=== PATIENT | male | born 1945 | race Hispanic/Latino ===

== ENCOUNTER → 2020-01-11 | Day surgery (SDC) | payer MEDICARE ==
[2020-01-08 12:33] LABS: BASOPHILS # (AUTO) 0.1 (0.0-0.1); BASOPHILS % 1.2 % (0.0-1.0); EOSINOPHILS # (AUTO) 0.2 (0.0-0.4); EOSINOPHILS % 3.1 % (0.0-6.0); HEMATOCRIT 42.5 % (38.2-49.6); HEMOGLOBIN 14.9 g/dL (14.0-18.0); LYMPHOCYTES # (AUTO) 2.4 (1.0-3.2); LYMPHOCYTES % 34.9 % (18.0-39.1); MEAN CORPUSCULAR HGB CONC 35.1 g/dL (31-35); MEAN CORPUSCULAR VOLUME 91.4 fL (81-99); MONOCYTES # (AUTO) 0.6 (0.2-0.8); MONOCYTES % 9.2 % (4.4-11.3); NEUTROPHILS # (AUTO) 3.5 (2.1-6.9); NEUTROPHILS % 50.6 % (38.7-80.0); PLATELET COUNT 210 x10e3/uL (140-360); RED BLOOD COUNT 4.65 x10e6/uL (4.3-5.7); RED CELL DISTRIBUTION WIDTH 13.1 % (11.7-14.4)
--- NOTE | 2020-01-08 12:43 | Diagnostic Imaging Report ---
EXAM: CHEST 2 VIEWS DATE: 01/08/2020 12:27 PM INDICATION: Preoperative evaluation COMPARISON: None FINDINGS: The trachea is midline. The lungs are symmetrically expanded without evidence for large focal consolidation, pneumothorax, or significant pleural effusion. The cardiomediastinal silhouette and pulmonary vasculature are within normal limits. No acute osseous abnormality is identified. The surrounding soft tissues are unremarkable. IMPRESSION: No acute cardiopulmonary process identified. Signed by: Dr. Brian Browning MD on 01/08/2020 12:39 PM
[2020-01-08 12:55] LABS: ANION GAP 10.4 mmol/L (8-16); CALCIUM 9.9 mg/dL (8.4-10.2); CREATININE, SERUM 1.48 mg/dL (0.72-1.25); POTASSIUM 5.4 mmol/L (3.5-5.1)
[~2020-01-11] MED LIST: AMLODIPINE BESY10 MG PO; B&O 60MG R/S 60 MG SUPP PR ONE; CEFTRIAXONE SOD 1 GM/NS 50 ML 50 ML IV ONE; CRESTOR10 MG PO; FENTANYL CITRATE/PF 100MCG/2 ML INJ ONE; FLOMAX0.4 MG PO; GEMFIBROZIL600 MG PO; IOPAMIDOL 610MG/1ML 300 MG/ML VIAL IV ONE; LIDOCAINE HCL 2% LOCAL INJ 5 ML SDV VIAL INJ ONE; METOPROLOL SUCC25 MG PO; NOVALOG INJ; ONDANSETRON HCL INJ 2MG/ML 2ML 2 MG/ML VIAL ONE; PANTOPRAZOLE SO40 MG PO; PROPOFOL IV EMULSION 10 MG/ML 20 ML VIAL ONE; RAMIPRIL10 MG PO; SEVOFLURANE INHAL SOLN 250 ML PEN BTL ONE; TRESIBA FL100 UNIT/1 SQ; TRIAMTERENE-HCTZ1 EA PO; VICTOZA 2-0.6 MG/0.1; [UNRECOGNIZED DRUG - OTHER] SQ
[2020-01-11 09:20] LABS: ANION GAP 12.9 mmol/L (8-16); BLOOD UREA NITROGEN 12 mg/dL (7-26); BUN/CREATININE RATIO 11 (6-25); CALCIUM 9.2 mg/dL (8.4-10.2); CARBON DIOXIDE 24 mmol/L (22-29); CHLORIDE 107 mmol/L (98-107); CREATININE, SERUM 1.06 mg/dL (0.72-1.25); EST GLOMERULAR FILTRATION RATE > 60 ML/MIN (60-); GLUCOSE 121 mg/dL (74-118); POTASSIUM 3.9 mmol/L (3.5-5.1); SODIUM 140 mmol/L (136-145)
[2020-01-11 11:40] VITALS: BP 126/71
--- OUTSIDE RECORDS SUMMARY | 2020-01-11 14:28 | XMS REPORT | Summary of Care ---
Author Author RHONDA SIDDIQUI M.D. Unknown Address Unknown Phone Unavailable Care Team Providers Care Survey Research Analyst Name Role Phone RHONDA SIDDIQUI M.D. Unavailable Unavailable ALENA SANCHEZ, ETHAN Unavailable Unavailable ARTUR SANCHEZ [place], RHONDA HINOJOSA Unavailable Unavailable ZHANE SANCHEZ [place], ZAIDA JESUS Unavailable Unavailable ZAIDA PHELAN M.D. Unavailable Unavailable KEVYN SANCHEZ [place], YANA Reese Unavailable Unavailable Unavailable Unavailable Functional Status Name Dates Details Functional status health issues are not documented Status: Name Dates Details Cognitive status health issues are not documented Status: Problems Name Dates Details Diabetes (250.00, E11.9) Status: Active High blood pressure (401.9, I10) Status: Active Lipoma of skin and subcutaneous tissue of neck (214.1, D17.0) Status: Active Arteriosclerosis of right carotid artery (433.10, I65.21) Status: Active Medications Name Dates Details Crestor TABS Active Synthroid TABS * Refills: 0 Active Fexofenadine HCl TABS * Refills: 0 Active Maxzide TABS * Refills: 0 Active Ramipril CAPS * Refills: 0 Active amLODIPine Besylate TABS * Refills: 0 Active Pantoprazole Sodium TBEC * Refills: 0 Active Tamsulosin HCl CAPS * Refills: 0 Active Gemfibrozil TABS * Refills: 0 Active Metoprolol Succinate ER TB24 * Refills: 0 Active Multivitamins TABS * Refills: 0 Active Aspirin TABS * Refills: 0 Active Allergies and Adverse Reactions Name Dates Details No Known Allergies (Allergy) Status: Active Past Medical History Name Dates Details History of diabetes mellitus (V12.29, Z86.39) Status: Resolved History of hypercholesterolemia (V12.29, Z86.39) Status: Resolved History of hypertension (V12.59, Z86.79) Status: Resolved History of Hypertriglyceridemia (272.1, E78.1) Status: Resolved Procedures Procedure Dates Details History of Hand Surgery Completed Immunization Name Dates Details Immunizations not documented Family History Name Dates Details Family history of asthma (V17.5, Z82.5) Comments: Other Status: Active Name Dates Details Family history of diabetes mellitus (V18.0, Z83.3) Status: Active Name Dates Details Family history of diabetes mellitus (V18.0, Z83.3) Status: Active Social History Name Dates Details - Status: Name Dates Details Former smoker Vital Signs Date Test Result Details No Known Vitals to report Results Date Description Value Details Results not documented Plan of Care Name Dates Details Planned Observations Planned Goals not documented Planned Encounters Appointment; SE MIKKI On: 21-Jan-2020 13:00 Appointment; RHONDA SIDDIQUI M.D. On: 28-Jan-2020 7:30 Appointment; RHONDA SIDDIQUI M.D. On: 12-Feb-2020 10:00 Interventions Provided Labs/Procedures/Imaging* Tobacco Use Screening; Done: 18 Dec 2019 Plan* Reviewed the following results today: * 1) Carotid US (dated 11/29/2019) * 2) Timothy Le Arterial Doppler (dated 11/29/2019) * I evaluated Mr. Isidro today for carotid artery stenosis. * Will schedule him for a repeat Carotid US to assure % of carotid stenosis. * Will proceed with scheduling him for a Right CEA. The procedure, risks and potential complications were reviewed with verbalized understanding. Neuromonitoring. * To continue ASA. Instructions Name Dates Details Instructions not documented Encounters Appointment; YANA BAGLEY M.D. Encounter Diagnosis: Problem not documented On: 14-Sep-2018 13:30 Appointment; YANA BAGLEY M.D. Encounter Diagnosis: Problem not documented On: 20-Oct-2018 10:30 Appointment; YANA BAGLEY M.D. Encounter Diagnosis: Problem not documented On: 02-Nov-2018 8:30 Appointment; RHONDA SIDDIQUI M.D. Encounter Diagnosis: Problem not documented On: 18-Dec-2019 9:30
--- OUTSIDE RECORDS SUMMARY | 2020-01-11 14:28 | XMS REPORT | Summary of Care ---
Author Author Uma Yusuf M.A. Organization Unknown Address Unknown Phone Unavailable Care Team Providers Care Warehouse Selector Name Role Phone Uma Yusuf M.A. Unavailable Unavailable YANA BAGLEY M.D. Unavailable Unavailable ZHANE SANCHEZ [place], ZAIDA JESUS Unavailable Unavailable ZAIDA PHELAN M.D. Unavailable Unavailable KEVYN SANCHEZ [place], YANA Reese Unavailable Unavailable ALENA SANCHEZ, ETHAN Unavailable Unavailable Unavailable Unavailable Functional Status Name Dates Details Functional status health issues are not documented Status: Name Dates Details Cognitive status health issues are not documented Status: Problems Name Dates Details Diabetes (250.00, E11.9) Status: Active High blood pressure (401.9, I10) Status: Active Lipoma of skin and subcutaneous tissue of neck (214.1, D17.0) Status: Active Medications Name Dates Details Crestor TABS Active Altace TABS * Refills: 0 Active Synthroid TABS * Refills: 0 Active Clindamycin HCl - 300 MG Oral Capsule TAKE 1 CAPSULE EVERY 6 HOURS DAILY. * Quantity: 28 Refills: 0 YANA BAGLEY M.D. * Start : 20-Oct-2018 Active Allergies and Adverse Reactions Name Dates Details No Known Allergies (Allergy) Status: Active Procedures Procedure Dates Details History of Hand Surgery Completed Immunization Name Dates Details Immunizations not documented Family History Name Dates Details Family history of asthma (V17.5, Z82.5) Comments: Other Status: Active Social History Name Dates Details - Status: Name Dates Details Never smoker Vital Signs Date Test Result Details No Known Vitals to report Results Date Description Value Details Results not documented Plan of Care Name Dates Details Planned Observations Planned Goals not documented Instructions Name Dates Details Instructions not documented Encounters Appointment; YANA BAGLEY M.D. Encounter Diagnosis: Problem not documented On: 14-Sep-2018 13:30 Appointment; YANA BAGLEY M.D. Encounter Diagnosis: Problem not documented On: 20-Oct-2018 10:30 Appointment; YANA BAGLEY M.D. Encounter Diagnosis: Problem not documented On: 02-Nov-2018 8:30
--- OUTSIDE RECORDS SUMMARY | 2020-01-11 14:28 | XMS REPORT | Summary of Care ---
Author Author VICTOR MANUEL SALAZAR APRN Unknown Address Unknown Phone Unavailable Care Team Providers Care Senior Payroll Administrator Name Role Phone RHONDA SIDDIQUI M.D. Unavailable Unavailable ETHAN CARVAJAL MD Unavailable Unavailable ZAIDA BAGLEY MD Unavailable Unavailable ZAIDA PHELAN M.D. Unavailable Unavailable YANA GUTHRIE MD Unavailable Unavailable Unavailable Unavailable Functional Status Name [...] Active Synthroid TABS * Refills: 0 Active Allergies and Adverse Reactions Name Dates Details No Known Allergies (Allergy) Status: Active Procedures Procedure Dates Details History of Hand Surgery Completed Immunization Name Dates Details Immunizations not documented Family History Name Dates Details Family history of asthma (V17.5, Z82.5) Comments: Other Status: Active Social History Name Dates Details Unknown if ever smoked Vital Signs Date Test Result Details No Known Vitals to report Results Date Description Value Details Results not documented Plan of Care Name Dates Details Planned Observations Planned Goals not documented Planned Encounters Appointment; RHONDA SIDDIQUI M.D. On: 18-Dec-2019 9:30 Interventions Provided Plan* Reviewed the following results today: * 1) Carotid US (dated 11/29/2019) * 2) Timothy Le Arterial Doppler (dated 11/29/2019) * I evaluated Mr. Isidro today for Instructions Name Dates Details Instructions not documented Encounters Appointment; YANA BAGLEY M.D. Encounter Diagnosis: Problem not documented On: 14-Sep-2018 13:30 Appointment; YANA BAGLEY M.D. Encounter Diagnosis: Problem not documented On: 20-Oct-2018 10:30 Appointment; YANA BAGLEY M.D. Encounter Diagnosis: Problem not documented On: 02-Nov-2018 8:30 Appointment; RHONDA SIDDIQUI M.D. Encounter Diagnosis: Problem not documented On: 18-Dec-2019 9:30
--- OUTSIDE RECORDS SUMMARY | 2020-01-11 14:28 | XMS REPORT | Summary of Care ---
Author Author RHONDA SIDDIQUI M.D. Unknown Address Unknown Phone Unavailable Care Team Providers Care Marketing Support Coordinator Name Role Phone RHONDA SIDDIQUI M.D. Unavailable Unavailable ALENA SANCHEZ, ETHAN Unavailable Unavailable ARTUR SANCHEZ [place], RHONDA HINOJOSA Unavailable Unavailable ZHANE SANCHEZ [place], ZAIDA JESUS Unavailable Unavailable ZAIDA PHELAN M.D. Unavailable Unavailable KEVYN SANCHEZ [place], YANA Reese Unavailable Unavailable Unavailable Unavailable Functional [...]
--- OUTSIDE RECORDS SUMMARY | 2020-01-11 14:28 | XMS REPORT | Summary of Care ---
Author Author VICTOR MANUEL SALAZAR N.P. Unknown Address [facility] Phone Unavailable Care Team Providers Care Concrete Products Dispatcher Name Role Phone RHONDA SIDDIQUI M.D. Unavailable Unavailable ZHANE SANCHEZ [place], ZAIDA JESUS Unavailable Unavailable ZAIDA PHELAN M.D. Unavailable Unavailable KEVYN SANCHEZ [place], YANA Reese Unavailable Unavailable ALENA SANCHEZ, ETHAN [...] Appointment; RHONDA SIDDIQUI M.D. On: 18-Dec-2019 9:30 Instructions Name Dates Details Instructions not documented Encounters Appointment; YANA BAGLEY M.D. Encounter Diagnosis: Problem not documented On: 14-Sep-2018 13:30 Appointment; YANA BAGLEY M.D. Encounter Diagnosis: Problem not documented On: 20-Oct-2018 10:30 Appointment; YANA BAGLEY M.D. Encounter Diagnosis: Problem not documented On: 02-Nov-2018 8:30 Appointment; RHONDA SIDDIQUI M.D. Encounter Diagnosis: Problem not documented On: 18-Dec-2019 9:30
--- OUTSIDE RECORDS SUMMARY | 2020-01-11 14:28 | XMS REPORT ---
[facility] Address Unknown Phone Unavailable Care Team Providers Care Brick Layer Name Role Phone ABEBE WHEAT Unavailable Unavailable Problems This patient has no known problems. Allergies, Adverse Reactions, Alerts This patient has no known allergies or adverse reactions. Medications This patient has no known medications. Encounters Start Date/Time End Date/Time Encounter Type Admission Type Attending [facility] Facility Care Department Encounter ID 2019-11-29 07:21:00 2019-11-29 07:21:00 Outpatient [facility] [id number] Results Test Description Test Time Test Comments Text Results Atomic Results Result Comments CHEST 2 VIEWS 2020-01-08 12:39:00 [place] [address] Patient Name: TRISH ISIDRO MR #: [id number] : 1945 Age/Sex: 74/M Req #: [id number] Adm Physician: Ordered by: ABEBE WHEAT MD Report #: [id number] Location: OR Room/Bed: Procedure: [id number] DX/CHEST 2 VIEWS Exam Date: 01/08/20 Exam Time: 1220 REPORT STATUS: Signed EXAM: CHEST 2 VIEWS DATE: 01/08/2020 12:27 PM INDICATION: Preoperative evaluation COMPARISON: None FINDINGS: The trachea is midline. The lungs are symmetrically expanded without evidence for large focal consolidation, pneumothorax, or significant pleural effusion. The cardiomediastinal silhouette and pulmonary vasculature are within normal limits. No acute osseous abnormality is identified. The surrounding soft tissues are unremarkable. IMPRESSION: No acute cardiopulmonary process identified. Signed by: Dr. Brian Mukherjee MD on 01/08/2020 12:39 PM Dictated By: BRIAN MUKHERJEE MD [id number] Transcribed By: ELIZABETH on 01/08/20 1239 COPY TO: ABEBE WHEAT MD
--- OUTSIDE RECORDS SUMMARY | 2020-01-11 14:28 | XMS REPORT | Summary of Care ---
Author Author VICTOR MANUEL SALAZAR APRN Unknown Address Unknown Phone Unavailable Care Team Providers Care Meat Puller Name Role Phone ARTUR Waterman, RHONDA Unavailable Unavailable ETHAN CARVAJAL MD Unavailable Unavailable ZHANE SANCHEZ [place], ZAIDA JESUS Unavailable Unavailable ZAIDA PHELAN M.D. Unavailable Unavailable KEVYN SANCHEZ [place], YANA Reese Unavailable Unavailable Unavailable Unavailable Functional [...] Details Planned Observations Planned Goals not documented Interventions Provided Labs/Procedures/Imaging* Tobacco Use Screening; Done: [...]
--- NOTE | 2020-01-27 20:52 | Operative Report ---
DATE OF PROCEDURE: 01/11/2020 SURGEON: Terrance Joe MD POSTOPERATIVE DIAGNOSES: 1. Microhematuria. 2. Urinary tract. 3. Renal insufficiency. 4. Punctate left upper pole stone. POSTOPERATIVE DIAGNOSES: 1. Microhematuria. 2. Urinary tract. 3. Renal insufficiency. 4. Punctate left upper pole stone. 5. Bulbar urethral stricture. OPERATIONS PERFORMED: 1. Cystourethroscopy with calibration and dilation of urethral stricture (separate procedure performed for the diagnosis of stricture). 2. Cystourethroscopy with bilateral ureteral catheterization and retrograde ureteropyelography (separate procedure performed for microhematuria, urinary tract infections, renal insufficiency and urolithiasis). 3. Interpretation of retrograde ureteropyelography. 4. Supervision of fluoroscopy, no radiologist present. ANESTHESIA: General. COMPLICATIONS: None. CLINICAL SUMMARY: Manjinder Ramey is a 74-year-old man with the above preoperative diagnoses. He is brought for the above procedures. He is aware of the risks of bleeding, infection, injury to adjacent structures, need for additional procedures and elected to proceed. OPERATIVE PROCEDURE IN DETAIL: Informed consent was verified. Manjinder Ramey was properly identified, taken to the operating room, placed on the cystoscopy table in supine position. Anesthesia was uneventfully begun. The patient was then carefully gently repositioned in dorsal lithotomy position. All pressure points well padded. His genitalia were prepared and draped in usual sterile fashion. The 22.5-Armenian cystoscope sheath with a visual obturator in place was atraumatically inserted in the patient's urethral meatus. There was obstruction and stricture at the fossa navicularis level. We calibrated this at 18-Armenian in size and dilated to 22.5-Armenian in size, this allowed us to easily place the 22.5-Armenian cystoscope sheath into the patient's urethra, it was guided unremarkable distal urethra, unremarkable bulbar region through the normal sphincteric region through the prostate bed, which was significant for visually obstructing bilobar BPH. We entered the patient's bladder. Panendoscopy revealed trabeculations, but no tumors, no stones, and no diverticula. Normally positioned and configured ureteral orifices were identified. An 8-Armenian catheter was used to cannulate each ureter and retrograde ureteral pyelograms were performed. Interpretation of retrograde ureteropyelography contrast was instilled in retrograde fashion bilaterally. There were no tumors, no stones, and no diverticula. Unobstructed drainage was observed bilaterally fluoroscopically. Fluoroscopically, I could not visualize the punctate stone in the left upper pole. The patient's bladder was drained. Cystoscope was withdrawn. Belladonna and opium suppository were placed revealing a 40 g prostate that is smooth, nonfluctuant without any nodules. The patient was then uneventfully reversed from anesthesia and taken to the recovery room in stable condition. Explicit postop instructions were given. Plans will be to follow the patient up in the office in about a month for uroflowmetry and bladder ultrasonography to evaluate his urination. Terrance MD POORNIMA Joe/MEL /[id number]
== END | disposition home or self-care (01) ==
LOC: OR 14:25
PROVIDERS: ATTEND Urology
DX: N20.0 Calculus of kidney (principal); N39.0 Urinary tract infection, site not specified; N28.9 Disorder of kidney and ureter, unspecified; N35.912 Unspecified bulbous urethral stricture, male; N40.1 Benign prostatic hyperplasia with lower urinary tract symptoms; N13.8 Other obstructive and reflux uropathy; N32.89 Other specified disorders of bladder; I10 Essential (primary) hypertension; E11.9 Type 2 diabetes mellitus without complications; K80.80 Other cholelithiasis without obstruction; R42 Dizziness and giddiness; R06.02 Shortness of breath; Z01.810 Encounter for preprocedural cardiovascular examination; Z01.812 Encounter for preprocedural laboratory examination; Z01.818 Encounter for other preprocedural examination; Z79.4 Long term (current) use of insulin; Z87.891 Personal history of nicotine dependence
CPT/HCPCS: 36415 ×2; 52281; 71046; 74420; 80048 ×2; 82948; 85025; 93005; J0696; J2001; J2405; J2704; J3010; Q9967